=== PATIENT | female | born 1990 | race Caucasian/White ===

== ENCOUNTER 2020-01-26 16:31 | Emergency (ER) | payer OTHER ==
[~2020-01-26] VITALS: Ht 165.1 cm; Wt 116.3 kg
[~2020-01-26 16:31] MED LIST: NO MEDS PER PT
[2020-01-26] MEDS ORDERED: MORPHINE SULFATE 4 MG/ML, 1ML ONE ×2 (17:16→21:12)
[2020-01-26] MEDS ORDERED: ONDANSETRON 2MG/ML, 2ML ONE (17:16)
[2020-01-26] MEDS ORDERED: ONDANSETRON 2MG/ML, 2ML IVPush ONE (17:30)
[2020-01-26] MEDS ORDERED: SODIUM CHLORIDE FLUSH 10ML SYR IVF ONE (17:30)
[2020-01-26] MEDS ORDERED: SODIUM CHLORIDE 0.9% 1,000ML IVBOLUS ONE (17:30)
[2020-01-26] MEDS: MORPHINE SULFATE 4 MG/ML, 1ML IVPush PRN ×2 (17:35→21:19)
[2020-01-26 17:58] LABS: BASOPHILS # (AUTO) 0.04 x10^3/uL (0-0.1); BASOPHILS % (AUTO) 0 % (0-1); EOSINOPHILS # (AUTO) 0.04 x10^3/uL (0-0.4); EOSINOPHILS % (AUTO) 0 % (1-7); LYMPHOCYTES # (AUTO) 1.84 x10^3/uL (1-3.4); LYMPHOCYTES % (AUTO) 17 % (22-44); MD NO; MEAN CORPUSCULAR HEMOGLOBIN 25.3 pg (27.0-34.8); MEAN CORPUSCULAR HGB CONC 32.6 g/dL (32.4-35.8); MEAN CORPUSCULAR VOLUME 77.8 fL (80-100); MEAN PLATELET VOLUME 8.5 fL (7.4-10.4); MONOCYTES # (AUTO) 0.49 x10^3/uL (0.2-0.8); MONOCYTES % (AUTO) 4 % (2-9); NEUTROPHILS % (AUTO) 78 % (42-75); PLATELET COUNT 386 x10^3/uL (130-400); RED BLOOD COUNT 4.78 x10^6/uL (3.82-5.3); RED CELL DISTRIBUTION WIDTH 15.6 % (9.6-15.2)
[2020-01-26 18:11] LABS: ALBUMIN 3.5 g/dL (3.4-5.0); ANION GAP 6 mmol/L (5-15); CALCIUM 8.7 mg/dL (8.5-10.1); CHLORIDE 109 mmol/L (98-107)
[2020-01-26 18:30] LABS: ALANINE AMINOTRANSFERASE 29 U/L (12-78); ALKALINE PHOSPHATASE 61 U/L (45-117); BILIRUBIN,TOTAL 0.2 mg/dL (0.2-1.0); CREATININE 1.19 mg/dL (0.55-1.02); TOTAL PROTEIN 7.7 g/dL (6.4-8.2)
--- NOTE | 2020-01-26 18:31 | NUR ---
TASK RN: PT AWAKE/ALERT, NAD NOTED. REPORTS IMPROVED PAIN AFTER MEDICATIONS. PT AMBULATED STEADILY TO RESTROOM TO PROVIDE UA; UA COLLECTED AND SENT TO LAB. PT TO US WITH SO AND US TECH.
[2020-01-26 18:56] LABS: MICROSCOPIC NOT IND
[2020-01-26 21:11] VITALS: BP 127/63
--- NOTE | 2020-01-26 21:11 | NUR ---
PT UP TO RESTROOM, GAIT STRONG AND INDEPENDENT. RETURNED TO BED WITHOUT ISSUE. CALL LIGHT IN REACH.
[2020-01-26] MEDS ORDERED: METHOTREXATE/PF 25 MG/ML, 2ML IM ONE (21:30)
--- NOTE | 2020-01-26 21:55 | NUR ---
REPORT TO ANDREW DAVEY.
--- NOTE | 2020-01-26 22:10 | NUR ---
CARE ASSUMED. RN FROM ONCOLOGY AT BEDSIDE TO ADMINISTER MEXOTHREXATE. WILL REASSESS PT UPON COMPLETION.
== END 2020-01-26 23:41 | disposition home or self-care (01) ==
LOC: ED 23:10
DX: O00.101 Right tubal pregnancy without intrauterine pregnancy (principal); R10.31 Right lower quadrant pain; R11.0 Nausea
CPT/HCPCS: 36415; 76830; 80053; 81003; 83690; 84702; 84703; 85025; 86901; 96372; 96374; 96375; 96376; 99285; J2270; J2405; J7030; J9250

== ENCOUNTER 2020-02-02 14:56 | Day surgery (SDC) | payer OTHER ==
[~2020-02-02] VITALS: Ht 165.1 cm; Wt 111.5 kg
[2020-02-02] MEDS ORDERED: LACTATED RINGERS 1,000 ML IV SCH (15:09)
[2020-02-02 15:28] VITALS: BP 114/80
[2020-02-02] MEDS ORDERED: CHLORHEXIDINE 15 ML UDC MM ONE (15:30)
[2020-02-02] MEDS ORDERED: METHYLENE BLUE 10 MG/ML 10ML ONE (16:57)
[2020-02-02] MEDS ORDERED: NEOSPORIN OINT, 15GM ONE (16:57)
[2020-02-02] MEDS ORDERED: BUPIVACAINE/PF-EPI 0.25% 1:200K ONE (16:57)
[2020-02-02] MEDS ORDERED: MIDAZOLAM 1 MG/ML, 2ML ONE (18:14)
[2020-02-02] MEDS ORDERED: FENTANYL PF 250 MCG/5ML ONE (18:15)
[2020-02-02] MEDS ORDERED: PROPOFOL 10 MG/ML, 20ML ONE (18:21)
[2020-02-02] MEDS ORDERED: ONDANSETRON 2MG/ML, 2ML ONE (18:21)
[2020-02-02] MEDS ORDERED: CEFAZOLIN 1,000 MG ONE (18:21)
[2020-02-02] MEDS ORDERED: DEXAMETHASONE 4 MG/ML, 5ML ONE (18:21)
[2020-02-02] MEDS ORDERED: SUCCINYLCHOLINE 20 MG/ML, 10ML ONE (18:21)
[2020-02-02] MEDS ORDERED: ROCURONIUM 10 MG/ML,10ML ONE (18:21)
[2020-02-02] MEDS ORDERED: ALBUTEROL SULFATE 2.5 MG/3 ML NPPB PRN (19:00)
[2020-02-02] MEDS ORDERED: KETOROLAC 30 MG/1 ML IV PRN (19:00)
[2020-02-02] MEDS ORDERED: METOCLOPRAMIDE 5 MG/ML, 2ML IV PRN (19:00)
[2020-02-02] MEDS ORDERED: DIAZEPAM 5 MG/ML, 2ML IV PRN ×2 (19:00)
[2020-02-02] MEDS ORDERED: ONDANSETRON 2MG/ML, 2ML IVPush PRN (19:00)
[2020-02-02] MEDS ORDERED: hydrALAzine 20 MG/ML, 1ML IV PRN (19:00)
[2020-02-02] MEDS ORDERED: PROMETHAZINE 25 MG/ML, 1ML IV PRN (19:00)
[2020-02-02] MEDS ORDERED: OXYcodone 5 MG/5 ML ORAL.SOL UDC PO PRN (19:00)
[2020-02-02] MEDS ORDERED: HYDROmorphone 1 MG/ML, 1ML INJ IV PRN (19:00)
[2020-02-02] MEDS ORDERED: MEPERIDINE/PF 25MG/0.5ML IVPush PRN (19:00)
[2020-02-02] MEDS ORDERED: LABETALOL 5MG/ML, 20ML IV PRN (19:00)
[2020-02-02] MEDS ORDERED: PROMETHAZINE 25 MG/ML, 1ML ONE (19:57)
[2020-02-02] MEDS ORDERED: KETOROLAC 30 MG/1 ML ONE (19:57)
[2020-02-02] MEDS ORDERED: FENTANYL PF 100 MCG/2ML ONE (19:57)
[2020-02-02] MEDS: FENTANYL PF 100 MCG/2ML IV PRN ×2 (20:08→20:23)
[2020-02-02] MEDS ORDERED: OXYC-302 PO (21:53)
[2020-02-02] MEDS ORDERED: OXYcodone/APAP 5/325MG TABLET PO PRN (22:00)
[2020-02-02] MEDS ORDERED: IBUP-1222 PO (22:24)
[2020-02-02] MEDS ORDERED: ONDA4TAB7 PO (22:25)
== END 2020-02-02 23:33 | disposition home or self-care (01) ==
LOC: OR 14:56 → 3N 20:55 → OR 23:33
PROVIDERS: ATTEND Obstetrics & Gynecology Maternal & Fetal Medicine
DX: O00.101 Right tubal pregnancy without intrauterine pregnancy (principal); Z11.59 Encounter for screening for other viral diseases; N97.1 Female infertility of tubal origin; J45.909 Unspecified asthma, uncomplicated; F32.9 Major depressive disorder, single episode, unspecified; E78.5 Hyperlipidemia, unspecified; Z79.899 Other long term (current) drug therapy; Z83.3 Family history of diabetes mellitus; Z83.42 Family history of familial hypercholesterolemia
CPT/HCPCS: 58350; 59151; 87635; 88305; J0330; J0690; J1100; J1885; J2250; J2405; J2550; J2704; J3010; J7120; Q9968; G0378

== ENCOUNTER 2021-03-28 20:57 | Emergency (ER) | payer OTHER ==
[~2021-03-28] VITALS: Ht 165.1 cm; Wt 110.0 kg
[~2021-03-28 20:57] MED LIST changes: +IBUP-1222 PO; +ONDA4TAB7 PO; +OXYC1TAB14 PO
--- NOTE | 2021-03-28 21:33 | NUR ---
assessment made. ERP at bedside.
[2021-03-28] MEDS ORDERED: MORPHINE SULFATE 4 MG/ML, 1ML ONE (21:37)
[2021-03-28] MEDS ORDERED: ONDANSETRON 2MG/ML, 2ML ONE (21:37)
--- NOTE | 2021-03-28 21:52 | NUR ---
IV placed. blood drawn. urine sample obtained and sent to lab. medicated for pain and vomiting. IVF hung.
[2021-03-28] MEDS ORDERED: MORPHINE SULFATE 4 MG/ML, 1ML IVPush PRN (22:00)
[2021-03-28] MEDS ORDERED: ONDANSETRON 2MG/ML, 2ML IVPush ONE (22:00)
[2021-03-28] MEDS ORDERED: SODIUM CHLORIDE 0.9% 1,000ML IVBOLUS ONE (22:00)
[2021-03-28 22:06] LABS: BASOPHILS % (AUTO) 1 % (0-1); EOSINOPHILS % (AUTO) 0 % (1-7); LYMPHOCYTES % (AUTO) 19 % (22-44); MEAN CORPUSCULAR HEMOGLOBIN 24.9 pg (27.0-34.8); MEAN CORPUSCULAR HGB CONC 33.4 g/dL (32.4-35.8); MEAN PLATELET VOLUME 7.9 fL (7.4-10.4); MONOCYTES % (AUTO) 5 % (2-9); NEUTROPHILS % (AUTO) 75 % (42-75); PLATELET COUNT 426 x10^3/uL (130-400); RED BLOOD COUNT 5.35 x10^6/uL (3.82-5.3); RED CELL DISTRIBUTION WIDTH 15.5 % (9.6-15.2)
[2021-03-28 22:13] LABS: ALANINE AMINOTRANSFERASE 24 U/L (12-78); ALBUMIN 3.3 g/dL (3.4-5.0); ANION GAP 9 mmol/L (5-15); CALCIUM 9.6 mg/dL (8.5-10.1); CHLORIDE 106 mmol/L (98-107)
[2021-03-28 22:14] LABS: MICROSCOPIC INDICATED
[2021-03-28 22:18] LABS: ALKALINE PHOSPHATASE 72 U/L (45-117); BILIRUBIN,TOTAL 0.4 mg/dL (0.2-1.0); CREATININE 0.85 mg/dL (0.55-1.02); TOTAL PROTEIN 8.3 g/dL (6.4-8.2)
--- NOTE | 2021-03-28 22:28 | NUR ---
patient c/o dizziness. oxygen went down to 88% RA. placed on 2 liters.
--- NOTE | 2021-03-28 22:39 | NUR ---
all labs resulted. chart up for MD to re-eval.
--- NOTE | 2021-03-28 23:02 | NUR ---
patient denies pain. described as soreness on her epigastric area. no nausea/vomiting noted. no more dizziness.
--- NOTE | 2021-03-28 23:13 | NUR ---
ERP at bedside for re-eval.
[2021-03-28 23:29] VITALS: BP 109/76
--- NOTE | 2021-03-28 23:29 | NUR ---
re-evaluation done. patient discharged with prescription and instruction. verbalized understanding.
== END 2021-03-28 23:31 | disposition home or self-care (01) ==
LOC: ED 22:00
DX: K52.9 Noninfective gastroenteritis and colitis, unspecified (principal)
CPT/HCPCS: 36415; 80053; 81001; 83690; 84703; 85025; 93005; 96361; 96374; 96375; 99284; J2270; J2405; J7030